=== PATIENT | female | born 1990 | race Caucasian/White ===

== ENCOUNTER 2020-10-04 12:37 | Outpatient (REF) | payer OTHER, SELFPAY ==
--- NOTE | 2020-10-04 12:42 | XR_ITS ---
EXAMINATION: XR CHEST CLINICAL INFORMATION: Respiratory tuberculosis. COMPARISON: None TECHNIQUE: 2 views of the chest were obtained. FINDINGS: The lungs are well-expanded and clear of acute pneumonic process. There are punctate 2 mm and less size nodules seen in both upper upper lobes and parahilar regions, nonspecific. The heart size and pulmonary vascularity is normal. No gross bony abnormality seen. XR/XR chest 2V IMPRESSION: No acute process. Punctate 2 mm and less nodules in the right upper lobe and right parahilar region..
== END 2020-10-04 12:38 | disposition home or self-care (01) ==
LOC: HO.XRAY 12:37
PROVIDERS: Visit Provider Physician Assistant
DX: Z11.1 Encounter for screening for respiratory tuberculosis (principal)
CPT/HCPCS: 71046

== ENCOUNTER 2020-10-17 08:40 | Outpatient (REF) | payer OTHER, SELFPAY ==
--- NOTE | 2020-10-17 08:43 | CT_ITS ---
EXAMINATION: CT CHEST WITH CONTRAST CLINICAL INFORMATION: Solitary pulmonary nodule. COMPARISON: Chest regressed dated 10/04/2020. TECHNIQUE: Multidetector volumetric CT imaging of the chest was obtained after the administration of 85 mL of Omnipaque 350 intravenous contrast without immediate adverse reactions. Axial MIP volume rendering provided. Sagittal and coronal reformatted images were obtained. This CT examination was performed using dose optimization techniques as appropriate, variously including the following: *Automated exposure control *Adjustment of mA and/or kV according to patient size (this includes techniques or standardized protocols for targeted exams where dose is matched to indication/reason for exam; i.e. extremities or head) *Use of iterative reconstruction technique DLP: 120.3 mGy-cm. FINDINGS: [employer]: Unremarkable. LUNGS: Within the posterior right lung apex, there is a 0.4 cm noncalcified pulmonary nodule (axial image 67/459). Along the right major fissure, there is a 0.2 cm subpleural noncalcified nodule (axial image 227/459). No additional pulmonary nodule, mass, or airspace consolidation. Central airways are patent. MEDIASTINUM: No cardiomegaly. No pericardial effusion. No thoracic aortic dilatation or dissection. No significant mediastinal or hilar lymphadenopathy. Unremarkable thyroid. PLEURA: There is no pleural effusion. No pleural mass or thickening. AXILLA: No lymphadenopathy. UPPER ABDOMEN: Unremarkable. OSSEOUS STRUCTURES: Unremarkable. CT/CT chest w con IMPRESSION: 1. Small, noncalcified right-sided pulmonary nodules measuring 0.4 and 0.2 cm. According to the UPDATED 2017 Fleischner Society recommendations, the advised follow-up imaging for solid nodules < 6 mm is: LOW RISK PATIENT: No routine follow-up. HIGH RISK PATIENT: Optional CT at 12 months. 2. No additional pulmonary nodule, mass, or airspace consolidation. 3. No significant lymphadenopathy.
[2020-10-17] MEDS: iohexoL 350 MG/ML 100 ML INFUS..BTL 65 ML IV (09:14)
== END 2020-10-17 08:41 | disposition home or self-care (01) ==
LOC: HO.CT 08:40
PROVIDERS: PCP Physician Assistant; Visit Provider Physician Assistant
DX: R91.1 Solitary pulmonary nodule (principal); Z91.89 Other specified personal risk factors, not elsewhere classified
CPT/HCPCS: 71260; Q9967